=== PATIENT | female | born 1980 | race Caucasian/White ===

== ENCOUNTER 2017-02-23 10:46 | Emergency (ER) | payer OTHER ==
[~2017-02-23] VITALS: Ht 162.6 cm; Wt 80.0 kg
[2017-02-23 10:48] VITALS: BP 154/74; PULSE 89; RESP 15; TEMP 98.2; O2SAT 99
[2017-02-23] MEDS ORDERED: PREN1TAB58 (11:05)
--- NOTE | 2017-02-23 11:30 | PD ---
HPI Chief Complaint: Related Problem Time Seen by Provider: 11:10 Travel History International Travel<30 days: No Contact w/Intl Traveler<30days: No Traveled to known affect area: No History of Present Illness HPI Patient comes in complaining of bleeding in that she noticed today when she went to the bathroom. Patient since urinated and noticed bright red blood when she wipes. Patient denies any abdominal pain, dysuria, fevers, back pain, nausea, vomiting, chest pain, shortness breath, dysuria, dizziness, lightheadedness, or loss or change in bowel. Patient reports she is A1. Patient has not seen her OB up as an appointment for the and she called them today was told comes emergency Department. Patient reports she is taking vitamins. [facility] Past Medical History Cardiovascular Problems: Yes Hypertension: Yes ?: LMP: december 16 : 3 Para: 1 : 1 Social History Alcohol Use: No Tobacco Use: No Substance Use: No Allergies-Medications (Allergen,Severity, Reaction): Coded Allergies: No Known Allergies (Unverified , 02/23/17) Reported Meds & Prescriptions Reported Meds & Active Scripts Active Reported Vitamin Formula Tb ( Vit/Iron Fumarate/FA) 1 Each Tablet DAILY Review of Systems Except as stated in HPI: all other systems reviewed are Neg Physical Exam Narrative GENERAL: Well-developed, well nourished, in no acute distress, and non-ill appearing. SKIN: Focused skin assessment warm and dry. HEAD: Atraumatic. Normocephalic. EYES: Pupils equal and round. EOMI. No scleral icterus. No injection or drainage. ENT: No nasal bleeding or discharge. Mucous membranes pink and moist. NECK: Trachea midline. Supple. No nuclear rigidity. CARDIOVASCULAR: Regular rate and rhythm. No murmur appreciated. RESPIRATORY: No accessory muscle use. No respiratory distress. GASTROINTESTINAL: Abdomen soft, non-tender, nondistended. Hepatic and splenic margins not palpable. Normal bowel sounds 4. No pulsatile mass. GENITOURINARY: Normal external genitalia without lesions or erythema. Vaginal vault with mild amount blood. Cervical os was closed small amount of bloody drainage. Bimanual was deferred. As it was performed presents to the waitstaff captain Mo at all times. MUSCULOSKELETAL: No obvious deformities. No clubbing. No cyanosis. No edema. Full range of motion. NEUROLOGICAL: Awake and alert. No obvious cranial nerve deficits. Motor grossly within normal limits. Normal speech. PSYCHIATRIC: Appropriate mood and affect; insight and judgment normal. Data Data Last Documented VS Vital Signs Date Time Temp Pulse Resp B/P Pulse Ox O2 Delivery O2 Flow Rate FiO2 02/23/17 10:48 98.2 89 15 154/74 99 Orders Ed Poc Ultrasound (02/23/17 ) Complete Rh (02/23/17 11:38) Labs Laboratory Tests Test 02/23/17 11:45 Blood Type O POSITIVE Rho(D) Type POSITIVE MDM Medical Decision Making Medical Screen Exam Complete: Yes Emergency Medical Condition: Yes Differential Diagnosis Ectopic , spontaneous miscarriage, threatened miscarriage, normal menstrual cycle, other Narrative Course Patient presented with vaginal bleeding and no abdominal pain. Ultrasound was performed by Dr. Hagen and there is evidence of a developing uterine . There is no evidence to suggest ectopic , nor cervicitis, PID or torsion at this time. There was no evidence to support colitis, diverticulitis, obstruction, abdominal or femoral herniation, volvulus, early appendicitis, or hernial incarceration or strangulation at this time. Patient is stable. There is no RH incompatibility. Possibility of a threatened was discussed with the patient. The patient was instructed to follow up with OB as scheduled. She was given warnings to return if bleeding worsened, passed tissue, felt faint or passed out, fever, worsening pain, inability to tolerate fluids, or as needed. The patient agreed with plan. Patient in no obvious distress upon re-evaluation. All pertinent laboratory/ Radiology result(s) discussed with patient/family. Discussed patient with Dr. Hagen, who saw and evaluated the patient is in agreement with plan of care and disposition. Any questions/concerns in reference to patient diagnosis/ condition discussed and clarified prior to patient's discharge. Reinforced sheer importance of close follow up with patient's OB. Instructed patient to return to ED immediately, if symptoms return/worsen. Pt showed understanding of above instructions. Further instructions and recommendations were detailed in discharge paperwork. Pt ambulated without difficulty out of ED at discharge. Diagnosis Primary Impression: Threatened miscarriage in early Patient Instructions: General Instructions, Threatened Miscarriage (ED) Additional Instructions: Follow-up with your OB as scheduled. Did not have sex until reevaluated by your OB. Continue taking your vitamins. Return to the emergency department if symptoms get worse, fevers, uncontrollable nausea and vomiting, severe abdominal pain, or for other concerns. Disposition: 01 DISCHARGE HOME Condition: Stable Andres Sabillon Feb 23, 2017 11:30
--- NOTE | 2017-02-23 12:11 | PD ---
Data Data Last Documented VS Vital Signs Date Time Temp Pulse Resp B/P Pulse Ox O2 Delivery O2 Flow Rate FiO2 02/23/17 10:48 98.2 89 15 154/74 99 Orders Ed Poc Ultrasound (02/23/17 ) Complete Rh (02/23/17 11:38) Labs Laboratory Tests Test 02/23/17 11:45 Blood Type O POSITIVE Rho(D) Type POSITIVE MDM Supervised Visit with ELIAZAR: Yes Narrative Course The history, exam, and medical decision-making in the associated midlevel provider note were completed with my assistance. I reviewed and agree with the findings presented. I attest that I had a [id number] encounter with the patient on the same day, and personally performed and documented my assessment and findings in the medical record. *My assessment and Findings: This is a 36-year-old female who presents to the emergency department with vaginal bleeding in the setting of early . I performed a bedside ultrasound and visualized an intrauterine with a normal heart rate. She evidently had a fair amount of blood on pelvic exam. She is Rh+. Patient will be discharged home in the setting of threatened miscarriage. Procedures Procedure Narrative Point of care ultrasound: Intrauterine with heart rate of 169 Gema Hagen MD Feb 23, 2017 12:11
== END 2017-02-23 12:58 | disposition home or self-care (01) ==
LOC: NEPD 10:46
DX: O20.0 Threatened abortion (principal); I10 Essential (primary) hypertension; Z3A.00 Weeks of gestation of pregnancy not specified
CPT/HCPCS: 86901; 99284

== ENCOUNTER 2017-06-12 21:11 | Inpatient (IN) | payer OTHER ==
[~2017-06-12 21:11] MED LIST: PREN1TAB58
[2017-06-12] MEDS ORDERED: ceFAZolin INJ 1,000 MG VIAL ONE (21:39)
[2017-06-12 21:45] LABS: AUTOMATED NEUTROPHIL # 11.7 TH/MM3 (1.8-7.7); BASOPHIL % 0.1 % (0.0-2.0); EOSINOPHIL % 0.3 % (0.0-4.0); HEMATOCRIT 32.9 % (35.0-46.0); HEMO FLAGS DIFF FINAL; LYMPH % 10.4 % (9.0-44.0); LYMPHOCYTE # 1.5 TH/MM3 (1.0-4.8); MEAN CORPUSCULAR HEMOGLOBIN 23.3 PG (27.0-34.0); MEAN CORPUSCULAR HGB CONC 31.9 % (32.0-36.0); MONO % 8.1 % (0.0-8.0); NEUT % 81.1 % (16.0-70.0); PLATELET COUNT 174 TH/MM3 (150-450); RED BLOOD COUNT 4.51 MIL/MM3 (4.00-5.30); RED CELL DISTRIBUTION WIDTH 22.1 % (11.6-17.2); WHITE BLOOD COUNT 14.4 TH/MM3 (4.0-11.0)
[2017-06-12 22:06] LABS: BLOOD GAS BASE EXCESS -3.6 mmol/L (-2-2); BLOOD GAS O2 HGB SATURATION 58 % (90-100); CORD BLOOD GAS HCO3 20 mmol/L (21-29); CORD BLOOD GAS PCO2 33 mmHG (34-78)
[2017-06-12 22:07] LABS: CORD BLOOD GAS PO2 24 mmHG (3.0-40.0); DRAW SITE CORD BLOOD; STAT YES
[2017-06-12] MEDS ORDERED: OXYTOCIN 30 UNITS-500ML PREMIX 500 ML IV ONE (22:15)
[2017-06-12] MEDS ORDERED: ONDANSETRON HCL 4 MG/2 ML VIAL IV PUSH PRN (22:15)
[2017-06-12] MEDS ORDERED: SODIUM CHLORIDE 0.9% FLUSH 10 ML FLUSH IV FLUSH PRN (22:15)
[2017-06-12] MEDS ORDERED: KETOROLAC TROMETHAMINE 60 MG/2 ML (IM) VIAL IM PRN ×2 (22:15)
[2017-06-12] MEDS ORDERED: MORPHINE SULFATE 4 MG/ML INJ IV PUSH PRN (22:15)
[2017-06-12] MEDS ORDERED: MORPHINE SULFATE 30 MG/30 ML PCA ONE (22:15)
[2017-06-12] MEDS ORDERED: SIMETHICONE 80 MG CHEWABLE TAB PO PRN (22:15)
--- NOTE | 2017-06-12 22:16 | PD ---
HPI Chief Complaint vaginal bleeding and abdominal pain Date Seen: Jun 12, 2017 Time Seen: 21:00 Travel History International Travel<30 Days: No Contact w/Intl Traveler<30Days: No Known Affected Area: No History of Present Illness HPI 36-year-old who is at 27 weeks and 3 days arrives here to the OB ED complaining of vaginal bleeding abdominal pain. Patient states that she had some mild cramping earlier today but this evening and intensified and was accompanied by vaginal bleeding. Patient states that she's had uncomplicated thus far and denies any medical or surgical issues. She's had 1 prior full-term spontaneous vaginal delivery and 1 . Patient denies fever or heavy vaginal bleeding. She states she's had normal movement. Weeks Gestation: 27 Para: 1 : 3 : 1 History Past Medical History Medical History: Denies Significant Hx Obstetric History Obstetric History Spontaneous vaginal delivery Past Surgical History Surgical History: No Previous Surgery Family History Family History: Negative Social History Alcohol Use: No Tobacco Use: No Substance Abuse: No Allergies-Medications (Allergen,Severity, Reaction): Coded Allergies: No Known Allergies (Unverified , 02/23/17) Home Meds Reported Medications Vit/Iron Fumarate/FA ( Vitamin Formula Tb) 1 Each Tablet, DAILY 02/23/17 Review of Systems Except as stated in HPI: all other systems reviewed are Neg Physical Exam Narrative GENERAL: Well-nourished, well-developed patient. SKIN: Warm and dry. HEAD: Normocephalic and atraumatic. EYES: No scleral icterus. No injection or drainage. NECK: Supple, trachea midline. No JVD. CARDIOVASCULAR: Regular rate and rhythm without murmurs, gallops, or rubs. RESPIRATORY: Breath sounds equal bilaterally. No accessory muscle use. ABDOMEN/GI: Abdomen soft, non-tender, bowel sounds present, no rebound, no guarding Gravid to [28-] weeks size Fundal Height: [-] GENITOURINARY: External Genitalia: intact and normal in appearance BUS glands: [Normal-] Cervix: [-Completely dilated] Effacement: [100%-] Station: [-1-] Presentation: [-Only small parts palpated and umbilical cord] Membranes: [intact] Uterine Contractions: FHT's: Category 3 tracing is noted with bradycardia to 60 as soon as patient was admitted to the OB ED. Bedside ultrasound confirms back up transverse lie presentation with umbilical cord and small parts in the lower pelvis, placenta appears to be intact, bradycardia to 60s is confirmed Category: [3-] Baseline: [-] Reactive: [-] Variability: [-] Decels: [-] EXTREMITIES: No cyanosis or edema. BACK: Nontender without obvious deformity. No CVA tenderness. NEUROLOGICAL: Awake and alert. Motor and sensory grossly within normal limits. Five out of 5 muscle strength in all muscle groups. Normal speech. Data Data Vital Signs Reviewed: Yes Orders Orders Ob (2e) Additional Admit Info (06/12/17 21:23) Complete Blood Count With Diff (06/12/17 21:36) Type And Screen (06/12/17 21:37) Urinalysis - C+S If Indicated (06/12/17 21:37) Specimen To Be Collected PRN (06/12/17 21:37) Cefazolin Inj (Ancef Inj) (06/12/17 21:39) Equip, Hospice Volunteer Coordinator Pump Use Of (06/12/17 21:53) Abdomen, Single View (06/12/17 ) Labs Laboratory Tests Test 06/12/17 21:28 06/12/17 21:40 White Blood Count 14.4 Red Blood Count 4.51 Hemoglobin 10.5 Hematocrit 32.9 Mean Corpuscular Volume 73.0 Mean Corpuscular Hemoglobin 23.3 Mean Corpuscular Hemoglobin Concent 31.9 Red Cell Distribution Width 22.1 Platelet Count 174 Mean Platelet Volume 9.8 Neutrophils (%) (Auto) 81.1 Lymphocytes (%) (Auto) 10.4 Monocytes (%) (Auto) 8.1 Eosinophils (%) (Auto) 0.3 Basophils (%) (Auto) 0.1 Neutrophils # (Auto) 11.7 Lymphocytes # (Auto) 1.5 Monocytes # (Auto) 1.2 Eosinophils # (Auto) 0.0 Basophils # (Auto) 0.0 CBC Comment DIFF FINAL Differential Comment Blood Gas Puncture Site CORD BLOOD Blood Gas Base Excess -3.6 Blood Gas Oxygen Saturation 58 Cord Blood HCO3 20 Cord Arterial Blood pH 7.40 Cord Arterial Blood PCO2 33 Cord Arterial Blood PO2 24 MDM Medical Record Reviewed: Yes Plan 36-year-old who is at 27 weeks and 3 days by patient estimation of estimated due date, no records are here in the hospital who presents with complete dilation of a back up transverse lie presentation with umbilical cord palpated and visualized via ultrasound in the lower pelvis. bradycardia to 60s plan emergency Neonatology is notified and is present here in the hospital There is no time for preoperative antibiotics or steroids Diagnosis Diagnosis: Primary Impression: 27 weeks gestation of Additional Impressions: labor in second trimester with delivery in second trimester bradycardia affecting management of mother, delivered Transverse lie, delivered, current hospitalization Funic presentation Velma Vo MD Jun 12, 2017 22:16
--- NOTE | 2017-06-12 22:21 | PD.OB.DELI ---
Procedure Note Section Procedure Pre Op Diagnosis: (1) Funic presentation (2) bradycardia affecting management of mother, delivered (3) 27 weeks gestation of (4) Transverse lie, delivered, current hospitalization (5) labor in second trimester with delivery in second trimester Post Op Diagnosis: Performed by Velma Vo Procedure: Other (Primary low vertical section) Indication for delivery: Nonreassuring heart tracing, malposition Previous condition: Other (Multiple uterine fibroids noted at ) Informed consent obtained: For anesthesia, For procedure Confirmed correct: Patient, Procedure, Site Anesthesia: Other (GETA) Monitoring during procedure: Blood pressure monitoring, threat monitoring analyst, Pulse oximetry Urinary catheter: Inserted using sterile technique, To dependent drainage Sterile preparation: Other (Emergency betadine wash prep) Position: Supine with wedge to left side Operative Features Skin Incision: Pfannenstiel Uterine Incision: Low vertical Membranes Ruptured: Artificially, Amount of liquid (normal), Appearance of fluid (malodorous) Presentation: Transverse lie (back up transverse lie) Delivery date: Jun 12, 2017 Delivery time: 21:36 Delivery of infant: Uneventful, Other (true knot in cord) : Male One Minute : 1 Five Minute : 4 Ten Minute : 7 Weight: 1170 Status of : Viable Placenta delivered: Intact, Sent to pathology Medications: Antibiotics Estimated blood loss: 1000 Procedure tolerated: Well Maternal Condition: Stable Condition: Velma Leonardo MD Jun 12, 2017 22:21
[2017-06-12 22:22] LABS: BLOOD GAS BASE EXCESS -4.7 mmol/L (-2-2); BLOOD GAS CARBOXYHEMOGLOBIN 1.5 % (0-4); BLOOD GAS HCO3 21 mmol/L (22-26); BLOOD GAS METHEMOGLOBIN 1.1 % (0-2); BLOOD GAS O2 HGB SATURATION 97 % (90-100); BLOOD GAS OXYGEN CONTENT 13.7 Vol % (12.0-20.0); BLOOD GAS PCO2 43 mmHg (38-42); BLOOD GAS PO2 350 mmHg (61-120); BLOOD GAS TOTAL HGB 9.4 G/DL (12.0-16.0); CRITICAL VALUE NO; DRAW SITE RT RADIAL; FIO2 100 %; NUMBER OF ARTERIAL PUNCTURES 1; OXYGEN DEVICE OR VENT; STAT YES; TEMP CORR TO 98.6; ULNAR PULSE PRESENT
[2017-06-12 22:28] VITALS: BP 135/81; PULSE 105; RESP 20; TEMP 98.3; O2SAT 99
[2017-06-12] MEDS ORDERED: ONDANSETRON HCL 4 MG/2 ML VIAL ONE (22:33)
[2017-06-12] MEDS ORDERED: MORPHINE SULFATE 4 MG/ML INJ ONE (22:37)
--- NOTE | 2017-06-12 22:43 | RADRPT ---
EXAM DATE/TIME: 06/12/2017 22:16 [place] COMPARISON: No previous studies available for comparison. INDICATIONS : . Instrument count. MEDICAL HISTORY : None. SURGICAL HISTORY : None. ENCOUNTER: Initial ACUITY: 1 day PAIN SCORE: 0/10 LOCATION: Bilateral abdomen FINDINGS: No metallic foreign body is identified within the visualized portions of the abdomen or pelvis. CONCLUSION: No metallic foreign body identified within the visualized portions of the abdomen or pelvis. Edilson Castillo MD on June 12, 2017 at 22:37 Board Certified Radiologist. This report was verified electronically.
[2017-06-12 22:45] VITALS: BP 130/82; PULSE 106; RESP 21; O2SAT 99
[2017-06-12] MEDS ORDERED: METOCLOPRAMIDE HCL 10 MG/2 ML VIAL IV ONE (22:47)
[2017-06-12] MEDS ORDERED: PROPOFOL 200 MG/20 ML AMP IV ONE (22:47)
[2017-06-12] MEDS ORDERED: LACTATED RINGER'S 1,000 ML BAG IV ONE (22:47)
[2017-06-12] MEDS ORDERED: DEXAMETHASONE SOD PHOS 4 MG/ML VIAL IV ONE (22:47)
[2017-06-12 23:00] VITALS: BP 157/80; PULSE 106; RESP 19; O2SAT 99
[2017-06-12] MEDS ORDERED: OXYTOCIN 10 UNIT/ML AMP ONE (23:08)
[2017-06-12 23:15] VITALS: BP 145/80; PULSE 107; RESP 23; O2SAT 100
[2017-06-12] MEDS ORDERED: KETOROLAC TROMETHAMINE 60 MG/2 ML (IM) VIAL IM ONE (23:25)
[2017-06-12 23:30] VITALS: BP 144/79; PULSE 107; RESP 20; O2SAT 99
[2017-06-12 23:40] VITALS: TEMP 98.2
[2017-06-12 23:42] LABS: BLOOD, URINE MOD (NEG); COMMENT (UR) CULT NOT INDICATED; CULTURE IF INDICATED CULT NOT INDICATED; GLUCOSE,URINE NEG (NEG); KETONE, URINE TRACE mg/dL (NEG); MUCUS URINE FEW /lpf (OCC); NITRITE,URINE NEG (NEG); SQUAMOUS EPITHELIAL CELL URINE <1 /hpf (0-5); URINE COLOR YELLOW (YELLW/STRAW)
[2017-06-12] MEDS ORDERED: OXYTOCIN 30 UNITS-500ML PREMIX 500 ML ONE (23:48)
[2017-06-13] MEDS ORDERED: CITRIC ACID-SODIUM CITRATE LIQ 30 ML UDC PO SCH (00:45)
[2017-06-13] MEDS ORDERED: LACTATED RINGER'S 1000 ML IV SCH (00:45)
[2017-06-13] MEDS ORDERED: LACTATED RINGER'S 1000 ML IV ONE (00:45)
[2017-06-13] MEDS ORDERED: ceFAZolin 2 GM PREMIX 50 ML IV SCH (00:45)
[2017-06-13] MEDS ORDERED: LACTATED RINGER'S 1000 ML INJ 1,000 ML IV SCH (03:11)
[2017-06-13 05:53] LABS: AUTOMATED NEUTROPHIL # 15.6 TH/MM3 (1.8-7.7); BASOPHIL % 0.2 % (0.0-2.0); HEMATOCRIT 27.8 % (35.0-46.0); HEMO FLAGS DIFF FINAL; LYMPH % 3.9 % (9.0-44.0); LYMPHOCYTE # 0.7 TH/MM3 (1.0-4.8); MEAN CELL VOLUME 73.6 FL (80.0-100.0); MEAN CORPUSCULAR HEMOGLOBIN 22.9 PG (27.0-34.0); MEAN CORPUSCULAR HGB CONC 31.1 % (32.0-36.0); MONO % 5.6 % (0.0-8.0); NEUT % 90.3 % (16.0-70.0); PLATELET COUNT 168 TH/MM3 (150-450); RED BLOOD COUNT 3.77 MIL/MM3 (4.00-5.30); RED CELL DISTRIBUTION WIDTH 22.5 % (11.6-17.2); WHITE BLOOD COUNT 17.3 TH/MM3 (4.0-11.0)
[2017-06-13] MEDS ORDERED: OXYTOCIN 30 UNITS-500ML PREMIX 500 ML IV PRN (08:15)
[2017-06-13] MEDS ORDERED: SODIUM CHLORIDE 0.9% FLUSH 10 ML FLUSH IV FLUSH SCH (09:00)
--- NOTE | 2017-06-13 10:17 | HHI.OB ---
Subjective Post Day: 1 Remarks doing well Objective Vitals/I&O Vital Signs Date Time Temp Pulse Resp B/P (MAP) Pulse Ox O2 Delivery O2 Flow Rate FiO2 06/13/17 00:27 20 06/12/17 23:40 98.2 06/12/17 23:30 107 20 99 06/12/17 23:30 144/79 (100) 06/12/17 23:15 107 23 145/80 (101) 06/12/17 23:15 100 06/12/17 23:00 106 19 157/80 (105) 99 06/12/17 22:47 16 06/12/17 22:45 106 21 130/82 (98) 99 06/12/17 22:28 98.3 99 06/12/17 22:28 105 20 135/81 (99) Objective Remarks GENERAL: Well-nourished, well-developed patient. ABDOMEN/GI: Abdomen soft, non-tender. Fundus: Firm, non-tender at umbilicus. incision clean and dry GENITOURINARY: Light to moderate bleeding. EXTREMITIES: No cyanosis or edema, non-tender, without signs of DVT. Medications and IVs Current Medications Medications (Trade) Dose Ordered Sig/Babak Route Start Time Stop Time Status Last Admin Lactated Ringer's 1,000 ml @ 100 mls/hr Q10H IV 06/13/17 03:11 06/13/17 23:10 06/13/17 05:44 Oxytocin 500 ml @ 100 mls/hr UNSCH X1 PRN IV 06/13/17 08:15 06/14/17 08:14 (NS Flush) 2 ml BID IV FLUSH 06/13/17 09:00 (NS Flush) 2 ml UNSCH PRN IV FLUSH 06/12/17 22:15 (Mylicon Chew) 80 mg QID PRN PO 06/12/17 22:15 (Toradol Inj) 60 mg UNSCH X1 PRN IM 06/12/17 22:15 06/13/17 22:14 06/12/17 23:27 (Toradol Inj) 30 mg Q6H PRN IM 06/12/17 22:15 06/13/17 22:14 06/13/17 04:29 (Percocet 5-325 Mg) 1 tab Q4H PRN PO 06/12/17 22:15 (Percocet 5-325 Mg) 2 tab Q4H PRN PO 06/12/17 22:15 Cefazolin Sodium 1000 mg/Sodium Chloride 100 ml @ 200 mls/hr Q8H IV 06/13/17 06:00 06/13/17 14:29 06/13/17 06:07 (Mira-Colace) 2 tab Q12H PRN PO 06/12/17 22:15 (M-M-R Ii Inj) 0.5 ml ONCE ONCE SQ 06/13/17 16:00 06/13/17 16:01 (Boostrix Inj) 0.5 ml ONCE ONCE IM 06/13/17 16:00 06/13/17 16:01 (Zofran Inj) 4 mg Q6H PRN IV PUSH 06/12/17 22:15 (Morphine Inj) 4 mg Q3H PRN IV PUSH 06/12/17 22:15 06/12/17 22:42 Lactated Ringer's 1,000 ml @ 150 mls/hr Q6H40M IV 06/13/17 00:45 06/12/17 21:59 (Bicitra Liq) 30 ml SLITTER OPERATOR PO 06/13/17 00:45 06/16/17 00:44 Cefazolin Sodium/ Dextrose 50 ml @ 100 mls/hr SLITTER OPERATOR IV 06/13/17 00:45 06/16/17 00:44 06/12/17 21:40 Assessment/Plan Problem List: (1) delivery delivered ICD Codes: O82 - Encounter for delivery without indication (2) labor in second trimester with delivery in second trimester ICD Codes: O60.12X0 - labor second trimester with delivery second trimester, not applicable or unspecified Status: Acute Kristian Fletcher MD Jun 13, 2017 10:17
[2017-06-13] MEDS: oxyCODONE/ACETAMINOPHEN 5 MG/325 MG TAB PO PRN ×2 (11:48→16:05)
[2017-06-13] MEDS ORDERED: DIPHTH/TETANUS/ACEL PERTUSSIS (BOOSTER) 0.5 ML VIAL/PFS IM ONE (16:00)
[2017-06-13] MEDS ORDERED: MEASLES, MUMPS, RUBELLA VACCINE 0.5 ML VIAL SQ ONE (16:00)
[2017-06-13] MEDS: IBUPROFEN 600 MG TAB PO PRN (16:06)
[2017-06-14] MEDS: IBUPROFEN 600 MG TAB PO PRN ×3 (03:36→22:24)
[2017-06-14] MEDS: oxyCODONE/ACETAMINOPHEN 5 MG/325 MG TAB PO PRN ×3 (03:36→22:24)
--- NOTE | 2017-06-14 07:26 | HHI.OB ---
Subjective Post Day: 2 Remarks doing well recovering from CS Objective Vitals/I&O Vital Signs Date Time Temp Pulse Resp B/P (MAP) Pulse Ox O2 Delivery O2 Flow Rate FiO2 06/13/17 12:45 16 Objective Remarks GENERAL: Well-nourished, well-developed patient. ABDOMEN/GI: Abdomen soft, non-tender. Fundus: Firm, non-tender at umbilicus. incision clean and dry GENITOURINARY: Light to moderate bleeding. EXTREMITIES: No cyanosis or edema, non-tender, without signs of DVT. Medications and IVs Current Medications Medications (Trade) Dose Ordered Sig/Babak Route Start Time Stop Time Status Last Admin Oxytocin 500 ml @ 100 mls/hr UNSCH X1 PRN IV 06/13/17 08:15 06/14/17 08:14 (NS Flush) 2 ml BID IV FLUSH 06/13/17 09:00 (NS Flush) 2 ml UNSCH PRN IV FLUSH 06/12/17 22:15 (Mylicon Chew) 80 mg QID PRN PO 06/12/17 22:15 (Percocet 5-325 Mg) 1 tab Q4H PRN PO 06/12/17 22:15 06/13/17 11:48 (Percocet 5-325 Mg) 2 tab Q4H PRN PO 06/12/17 22:15 06/14/17 03:36 (Mira-Colace) 2 tab Q12H PRN PO 06/12/17 22:15 (Zofran Inj) 4 mg Q6H PRN IV PUSH 06/12/17 22:15 (Morphine Inj) 4 mg Q3H PRN IV PUSH 06/12/17 22:15 06/12/17 22:42 Lactated Ringer's 1,000 ml @ 150 mls/hr Q6H40M IV 06/13/17 00:45 06/12/17 21:59 (Bicitra Liq) 30 ml MOBILITY DEVELOPER PO 06/13/17 00:45 06/16/17 00:44 Cefazolin Sodium/ Dextrose 50 ml @ 100 mls/hr MOBILITY DEVELOPER IV 06/13/17 00:45 06/16/17 00:44 06/12/17 21:40 (Motrin) 600 mg Q6H PRN PO 9/19/17 16:15 06/14/17 03:36 Assessment/Plan Problem List: (1) delivery delivered ICD Codes: O82 - Encounter for delivery without indication (2) labor in second trimester with delivery in second trimester ICD Codes: O60.12X0 - labor second trimester with delivery second trimester, not applicable or unspecified Status: Acute Plan: probable DC oin am . She has 28 week in NICU Kristian Fletcher MD Jun 14, 2017 07:26
--- NOTE | 2017-06-14 07:27 | MP ---
cc: LARRY FOWLER M.D. DATE OF SURGERY 06/12/2017 DATE OF 1980 PREOPERATIVE DIAGNOSES 1. 27-week gestation. 2. Backup transverse lie a funic presentation. 3. labor in second trimester with complete dilation. 4. bradycardia affecting management of the mother. POSTOPERATIVE DIAGNOSES 1. 27-week gestation. 2. Backup transverse lie a funic presentation. 3. labor in second trimester with complete dilation. 4. bradycardia affecting management of the mother. 5. Multiple uterine fibroids, subserosal. 6. True knot noted in the cord. PROCEDURE Primary low vertical section. ANESTHESIA General endotracheal. SURGEON Larry Fowler MD ESTIMATED BLOOD LOSS 1000 cc. MEDICATIONS Ancef 2 grams given intraoperatively. COUNTS Not done. Postoperative x-ray revealed no sponges or instruments intraoperatively. DRAINS Arzate to gravity. FINDINGS 1. Normal uterus, tubes and ovaries. 2. Clear amniotic fluid with malodorous presentation with malodorous fluid noted. 3. Multiple uterine fibroids, subserosal. 4. Infant male in a backup transverse lie with a funic presentation, delivered as a breech at 21:36, weight was 1170 grams, 2 pounds, 9.3 ounces. Apgars were 1 at 1 minute, 4 at 5 minutes and 7 at 10 minutes. 5. Placenta was somewhat necrotic in nature. 6. True knot noted in the cord. DESCRIPTION OF PROCEDURE The patient taken back to the operating room, put into the dorsal lithotomy position with a wedge to her left side, using a Betadine wash due to the emergency nature of the case. General anesthetic was placed and then a Pfannenstiel incision was made into the skin and taken down to the fascia. The fascia was nicked in the midline, extended bilaterally, then taken off the rectus muscles. The muscles were divided in the midline. Anterior peritoneum was entered. A low vertical incision was made and taken down with the bandage scissors. Bag of water was ruptured and noted to be malodorous. The infant was grasped by the lower extremities and delivered into the field and, using counterclockwise and clockwise rotation, the upper extremities were delivered, head was flexed and delivered to the field. Resuscitation and Neonatology was there to give care. A true knot was noted in the cord. The infant was handed off and a doubly clamped cord segment was given for arterial blood gas. The placenta was delivered intact and the endometrial cavity was curetted with a moist laparotomy sponge. The vertical incision was repaired using a running locking suture x2 layers and then an imbricating suture on the serosal layer with excellent hemostasis. At least five leiomyoma were noted, two in the anterior segment, one fundal and two posterior. Good hemostasis was noted after irrigation. The peritoneum was closed with a 2-0 chromic and then the muscles were plicated together in the midline with a 2-0 chromic. The fascia was closed with a #1 PDS subcuticular, the subcutaneous tissues made hemostatic with a Bovie and a subcuticular suture of 4-0 Monocryl was placed, followed by Steri-Strips and a dressing. The patient was taken to the recovery room after x-ray was performed. MD MANDA Burk/STANISLAW /10:23 PM /7:05 AM
[2017-06-14] MEDS: DOCUSATE SODIUM 50 MG/SENNA 8.6 MG TAB PO PRN (22:24)
[2017-06-15 08:00] VITALS: BP 108/76; PULSE 95; RESP 18; TEMP 98.2
[2017-06-15] MEDS: oxyCODONE/ACETAMINOPHEN 5 MG/325 MG TAB PO PRN ×2 (08:23→14:54)
[2017-06-15] MEDS: IBUPROFEN 600 MG TAB PO PRN ×2 (08:24→14:54)
--- NOTE | 2017-06-15 13:28 | HHI.OB ---
Subjective Post Day: 3 Remarks doing well Objective Vitals/I&O Vital Signs Date Time Temp Pulse Resp B/P (MAP) Pulse Ox O2 Delivery O2 Flow Rate FiO2 06/15/17 08:00 98.2 95 18 108/76 (87) Objective Remarks GENERAL: Well-nourished, well-developed patient. ABDOMEN/GI: Abdomen soft, non-tender. Fundus: Firm, non-tender at umbilicus. incision clean and dry GENITOURINARY: Light to moderate bleeding. EXTREMITIES: No cyanosis or edema, non-tender, without signs of DVT. Medications and IVs Current Medications Medications (Trade) Dose Ordered Sig/Babak Route Start Time Stop Time Status Last Admin (NS Flush) 2 ml BID IV FLUSH 06/13/17 09:00 (NS Flush) 2 ml UNSCH PRN IV FLUSH 06/12/17 22:15 (Mylicon Chew) 80 mg QID PRN PO 06/12/17 22:15 (Percocet 5-325 Mg) 1 tab Q4H PRN PO 06/12/17 22:15 06/15/17 08:23 (Percocet 5-325 Mg) 2 tab Q4H PRN PO 06/12/17 22:15 06/14/17 03:36 (Mira-Colace) 2 tab Q12H PRN PO 06/12/17 22:15 06/14/17 22:24 (Zofran Inj) 4 mg Q6H PRN IV PUSH 06/12/17 22:15 (Morphine Inj) 4 mg Q3H PRN IV PUSH 06/12/17 22:15 06/12/17 22:42 Lactated Ringer's 1,000 ml @ 150 mls/hr Q6H40M IV 06/13/17 00:45 06/12/17 21:59 (Bicitra Liq) [address] ROLLER ENGINEER PO 06/13/17 00:45 06/16/17 00:44 Cefazolin Sodium/ Dextrose 50 ml @ 100 mls/hr STREET ROLLER ENGINEER IV 06/13/17 00:45 06/16/17 00:44 06/12/17 21:40 (Motrin) 600 mg Q6H PRN PO 06/13/17 16:15 06/15/17 08:24 Assessment/Plan Problem List: (1) delivery delivered ICD Codes: O82 - Encounter for delivery without indication (2) labor in second trimester with delivery in second trimester ICD Codes: O60.12X0 - labor second trimester with delivery second trimester, not applicable or unspecified Status: Acute Plan: probable DC oin am . She has 28 week in NICU Discharge Planning today Kristian Fletcher MD Jun 15, 2017 13:28
[2017-06-15] MEDS ORDERED: OXYC1TAB63 PO (13:30)
--- NOTE | 2017-06-15 13:33 | HHI.DCPOC ---
Discharge Care Plan Diagnosis: (1) delivery delivered Report Symptoms to Your Doctor -Temperature above 100.5 degrees -Redness, of incision or excessive or foul smelling drainage -Unusual pain or calf pain -Increased vaginal bleeding -Painful or difficulty urinating -Feelings of extreme sadness or anxiety after 2 weeks Goals to Promote Your Health * To prevent worsening of your condition and complications * To maintain your health at the optimal level Directions to Meet Your Goals Take your medications as prescribed Follow your dietary instruction Follow activity as directed Ensure plenty of rest for recovery Drink fluids for hydration Keep your appointments as scheduled Take your immunizations and boosters as scheduled If your symptoms worsen call your PCP, if no PCP go to Urgent Care Center or Emergency Room Smoking is Dangerous to Your Health. Avoid second hand smoke Call the 24-hour crisis hotline for domestic abuse at Kristian Fletcher MD Jun 15, 2017 13:32
--- NOTE | 2017-06-15 13:35 | HHI.DS ---
Admission Date Jun 12, 2017 at 21:24 Discharge Date: Jun 15, 2017 Admitting Diagnosis labor Diagnosis: Delivery Date: Jun 12, 2017 : Primary : Male Brief History 36-year-old who is at 27 weeks and 3 days arrives here to the OB ED complaining of vaginal bleeding abdominal pain. Patient states that she had some mild cramping earlier today but this evening and intensified and was accompanied by vaginal bleeding. Patient states that she's had uncomplicated thus far and denies any medical or surgical issues. She's had 1 prior full-term spontaneous vaginal delivery and 1 . Patient denies fever or heavy vaginal bleeding. She states she's had normal movement. Hospital Course CS for complete dilation, 3 days pp doing well ready for DC Pt Condition on Discharge: Good Discharge Disposition: Discharge Home Discharge Instructions Diet Instructions: As Tolerated, No Restrictions Activities You Can Perform: Pelvic Rest Activities to Avoid: Driving for 24 hrs Follow up Referrals: FAMILY MEDIATOR - 2 Weeks @ [facility] with Kristian Fletcher MD New Medications: Oxycodone-Acetaminophen (Oxycodone-Acetaminophen) 5-325 mg Tab 2 TAB PO Q4H PRN for PAIN SCALE 6 TO 10 for 7 Days, #30 TAB 0 Refills Continued Medications: Vit/Iron Fumarate/FA ( Vitamin Formula Tb) 1 Each Tablet DAILY Kristian Fletcher MD Jun 15, 2017 13:35
[2017-06-15] MEDS: DOCUSATE SODIUM 50 MG/SENNA 8.6 MG TAB PO PRN (14:54)
[2017-06-21 06:58] LABS: HEROIN (6-ACETYLMORPHINE) UR NEG (NEG); OBMETHADONE UR NEG (NEG); PHENCYCLIDINE URINE NEG (NEG)
[2017-06-21 06:59] LABS: BATH SALTS (MDPV) UR NEG (NEG); ECSTASY (MDMA) UR NEG (NEG); K2 SPICE UR NEG (NEG)
[2017-06-21 07:03] LABS: GABAPENTIN UR NEG (NEG); HYDROMORPHONE U NEG (NEG)
== END 2017-06-15 16:06 | disposition home or self-care (01) | DRG 765 ==
LOC: HOBED 21:11 → H2EB 21:24 → H1EA 06-13 00:13
PROVIDERS: ADMIT Obstetrics & Gynecology; ATTEND Obstetrics & Gynecology
PROC: 10D00Z0 Extraction of Products of Conception, High, Open Approach (ICD-10-PCS; principal; 2017-06-12)
DX: O32.2XX0 Maternal care for transverse and oblique lie, not applicable or unspecified (principal); O60.12X0 Preterm labor second trimester with preterm delivery second trimester, not applicable or unspecified; Z37.0 Single live birth; O34.12 Maternal care for benign tumor of corpus uteri, second trimester; D25.2 Subserosal leiomyoma of uterus; O76 Abnormality in fetal heart rate and rhythm complicating labor and delivery; O69.2XX0 Labor and delivery complicated by other cord entanglement, with compression, not applicable or unspecified; Z3A.27 27 weeks gestation of pregnancy; O32.1XX0 Maternal care for breech presentation, not applicable or unspecified; O09.529 Supervision of elderly multigravida, unspecified trimester
CPT/HCPCS: 36600; 59025; 74000; 80307; 81001; 82805; 85025; 86850; 86900; 86901; 87070; 88307; 90715; 99283; G0481; J0690; J1100; J1885; J2270; J2405; J2590; J2765; J3010; J7120